=== PATIENT | male | born 1950 | race Caucasian/White ===

== ENCOUNTER → 2016-10-15 | Outpatient (CLI) | payer BC ==
[~2016-10-15] MED LIST: ASPI81TA28 PO; FLM4 PO; LACT10CA3 PO; LEVO125T8 PO; LOSA50TA6 PO; MULT-884 PO; OMEP20CA9 PO
== END | disposition home or self-care (01) ==
LOC: C.LABBC 09:07
PROVIDERS: ATTEND Urology
DX: N40.1 Benign prostatic hyperplasia with lower urinary tract symptoms (principal); R97.20 Elevated prostate specific antigen [PSA]